=== PATIENT | male | born 1985 | race Hispanic/Latino ===

== ENCOUNTER 2021-03-18 16:50 | Emergency (ER) | payer SELFPAY ==
--- NOTE | ~2021-03-18 | CT_ITS ---
EXAMINATION: CT abdomen pelvis w con DATE: 03/18/2021 18:16 INDICATION: Epigastric abdominal pain. TECHNIQUE: Computed tomography (CT) of the abdomen and pelvis was performed with 100 mL Omnipaque 350 intravenous contrast. Automated exposure control and iterative reconstruction technique were employe d. The dose-length product was 1045.26 mGy-cm. COMPARISON: None. FINDINGS: The visualized portions of the lung bases demonstrate minimal atelectasis. No pleural effus ion. The heart size is normal. No pericardial effusion. There is diffuse hepatic steatosis. The liver , spleen, pancreas, adrenal glands, and kidneys are normal. There are no dilated loops of bowel. The appendix is normal. There is diverticulosis of the colon without evidence of diverticulitis. There ar e no pathologically enlarged lymph nodes. Prominent fat in the left inguinal canal may be a hernia. T here is no free intraperitoneal fluid. There is an umbilical hernia containing fat. The bones are unr emarkable. IMPRESSION: 1. Umbilical hernia containing fat. 2. Diffuse hepatic steatosis. Reviewed, dictated and finalized at location A.
--- NOTE | ~2021-03-18 | XR_ITS ---
EXAMINATION: XR chest 2V DATE: 03/18/2021 17:11 INDICATION: Left chest pain. TECHNIQUE: Frontal and lateral views of the chest were obtained. COMPARISON: None. FINDINGS: The chest demonstrates clear lungs without pneumonia, pleural effusion, or pneumothorax. Th e heart size is normal. IMPRESSION: 1. No acute cardiopulmonary disease. Reviewed, dictated and finalized at location A.
--- NOTE | 2021-03-18 16:52 | ECG_ITS ---
Measurements Intervals [place] Rate: 77 P: 63 MT: 141 QRS: -20 QRSD: 100 T: -1 QT: 348 QTc: 396 Interpretive Statements SINUS RHYTHM INCOMPLETE RIGHT BUNDLE BRANCH BLOCK ST ELEVATION IN ANTEROLAT/HIGH LAT LEADS- PROBABLY EARLY REPOLARIZATION ABNORMALITY BORDERLINE T WAVE ABNORMALITY- INFERIOR LEADS BORDERLINE ECG Electronically Signed On 03-18-2021 20:42:27 CDT by Triston Astorga D.O.
[2021-03-18 16:53] VITALS: BP 144/92; PULSE 84; RESP 16; TEMP 36.7
[2021-03-18 16:58] VITALS: PULSE 75
[2021-03-18 17:06] LABS: Basophils Absolute Auto 0.1 K/mm3 (0.0-0.1); Basophils Percent Auto 0.8 % (0.2-1.2); Eosinophils Absolute Auto 0.2 K/mm3 (0-0.3); Eosinophils Percent Auto 2.1 % (0-4.4); Hematocrit 46.6 % (42.0-52.0); Hemoglobin 15.5 g/dL (14.0-18.0); Immature Granulocyte Absolute 0.06 K/mm3 (0.00-0.031); Immature Granulocyte Percent A 0.7 % (0-0.5); Lymphocytes Absolute Auto 2.79 K/mm3 (0.9-3.2); Lymphocytes Percent Auto 32.7 % (18.3-44.2); Mean Corpuscular HGB Conc 33.3 g/dl (32-36); Mean Corpuscular Hemoglobin 28.7 pg (26-34); Mean Corpuscular Volume 86.1 fl (80-100); Monocytes Absolute Auto 0.5 K/mm3 (0.1-0.6); Monocytes Percent Auto 6.3 % (2.6-8.5); Neutrophils Absolute Auto 4.9 K/mm3 (1.3-6.7); Neutrophils Percent Auto 57.4 % (45.5-73.1); Platelet Count Result 280 k/mm3 (150-375); Red Blood Count 5.41 M/mm3 (4.6-6.20); Red Cell Distribution Width 12.7 % (11.5-14.5); White Blood Count 8.5 K/mm3 (4.5-10.0)
[2021-03-18 17:16] LABS: Anion Gap 7 mmol/L (8-16); Blood Urea Nitrogen 16 mg/dL (9-20); Calcium 8.9 mg/dL (8.4-10.2); Carbon Dioxide 25 mmol/L (22-30); Chloride 102 mmol/L (98-107); Estimated Glomerular Filt Rate > 60; Glucose 99 mg/dL (65-110); Potassium 3.8 mmol/L (3.4-5.0); Sodium 134 mmol/L (137-145)
[2021-03-18 17:22] LABS: INR 0.9
[2021-03-18 17:23] LABS: Partial Thromboplastin Time 29.5 SECONDS (22.3-36.8)
[2021-03-18 17:28] LABS: Troponin I < 0.012 ng/mL (0.000-0.034)
--- NOTE | 2021-03-18 17:57 | ED.CHESTPAIN ---
HPI - Chest Pain General Chief Complaint: Chest Pain Stated Complaint: chest pain Time Seen by Provider: 03/18/21 17:19 Source: patient Mode of arrival: ambulatory Limitations: no limitations History of Present Illness HPI narrative: This is a 36 year old male that presents to the ER for upper abdominal pain present over the last week. Reports the pain is intermittent and sharp. It is worsened sometimes with certain movement. Reports the pain started to radiate into his chest which prompted him to be seen. Denies fever, cough, shortness of breath, nausea, vomiting, dysuria, or lower extremity edema. Related Data Home Medications Medication Instructions Recorded Confirmed No Home Medications 03/18/21 03/18/21 Allergies Allergy/AdvReac Type Severity Reaction Status Date / Time No Known Allergies Allergy Verified 03/18/21 16:58 Review of Systems Review of Systems: CONSTITUTIONAL: Denies fever CARDIOVASCULAR: Reports chest pain. Denies edema. RESPIRATORY: Denies cough or dyspnea. GASTROINTESTINAL: Reports abdominal pain. Denies nausea, vomiting GENITOURINARY: Denies dysuria or hematuria. All systems reviewed & are unremarkable except as noted in HPI and below PMFSH Past Medical History Medical History (Updated 03/18/21 @ 20:59 by Leann Hollis PA-C) No active medical problems Social History Social History (Updated 03/18/21 @ 18:00 by Leann Hollis PA-C) Substance use: never Exam Narrative: GENERAL: Well-appearing, well-nourished, and in no acute distress. HEAD: Normocephalic, atraumatic. EYES: EOMI. CHEST: Clear to auscultation. No respiratory distress. No wheezes rales or rhonchi HEART: Regular rate and rhythm. No murmur heard. Normal peripheral pulses. ABDOMEN: Soft, nondistended, normal active bowel sounds. Tender to palpation in epigastrium, without guarding. No CVA tenderness EXTREMITIES: Normal range of motion. No edema. SKIN: Warm, dry, no rash. NEURO: No focal deficits. Alert and oriented x3. PSYCH: Normal mood and affect Course Vital Signs Vital signs: Vital Signs Temperature 98.1 F 03/18/21 16:53 Pulse Rate 84 03/18/21 16:53 Respiratory Rate 16 03/18/21 16:53 Blood Pressure 144/92 H 03/18/21 16:53 Temperature 98.1 F 03/18/21 18:31 Pulse Rate 66 03/18/21 20:29 Respiratory Rate 18 03/18/21 20:29 Blood Pressure 127/56 L 03/18/21 20:29 Pulse Oximetry 99 03/18/21 20:29 MDM - Chest Pain MDM Narrative Medical decision making narrative: Patient presents to the emergency department for left-sided abdominal/chest pain present over the last week. He is afebrile and nontoxic-appearing. His vitals are stable. CBC and metabolic panel without concerning findings. Lipase is normal. EKG with nonspecific ST changes. Baseline and 3-hour troponin are negative. His heart score is a 2. Patient reports improvement in pain after dose of Toradol. Chest x-ray without acute cardiopulmonary abnormality. CT scan abdomen and pelvis is without acute findings. Patient was updated on case findings. He is stable and felt appropriate for further outpatient evaluation. He is instructed to follow-up with primary care doctor. He was given warnings to return to the ER Lab Data Attestation: I reviewed the patient's lab results. Result diagrams: 03/18/21 17:00 03/18/21 17:00 Labs: Lab Results 03/18/21 03/18/21 03/18/21 Range/Units 17:00 17:00 17:00 WBC 8.5 (4.5-10.0) K/mm3 RBC 5.41 (4.6-6.20) M/mm3 Hgb 15.5 (14.0-18.0) g/dL Hct 46.6 (42.0-52.0) % MCV 86.1 (80-100) fl MCH 28.7 (26-34) pg MCHC 33.3 (32-36) g/dl RDW 12.7 (11.5-14.5) % Plt Count 280 (150-375) k/mm3 MPV 9.0 (7.4-10.4) fl Immature Gran % (Auto) 0.7 H (0-0.5) % Neut % (Auto) 57.4 (45.5-73.1) % Lymph % (Auto) 32.7 (18.3-44.2) % [place] % (Auto) 6.3 (2.6-8.5) % Eos % (Auto) 2.1 (0-4.4) % Baso % (Auto)
[2021-03-18] MEDS: KETOROLAC 30 MG/ML VIAL (*BKC) IV PUSH (18:01)
[2021-03-18 18:08] VITALS: BP 127/73; PULSE 80; RESP 18; O2SAT 99
[2021-03-18 18:19] LABS: Alanine Aminotransferase 44 U/L (4-50); Albumin Level 4.6 g/dL (3.5-5.1); Alkaline Phosphatase 51 U/L (38-126); Aspartate Amino Transferase 39 U/L (17-59); Bilirubin,Total 0.4 mg/dL (0.2-1.3); Lipase 115 U/L (23-300)
[2021-03-18 18:31] VITALS: TEMP 36.7
[2021-03-18 19:02] VITALS: PULSE 72; RESP 12; O2SAT 100
[2021-03-18 20:29] VITALS: BP 127/56; PULSE 66; RESP 18; O2SAT 99
[2021-03-18 20:42] LABS: Troponin I < 0.012 ng/mL (0.000-0.034)
== END 2021-03-18 21:08 | disposition home or self-care (01) ==
PROVIDERS: Physician Assistant; Emergency Provider Emergency Medicine
DX: R10.12 Left upper quadrant pain (principal); K42.9 Umbilical hernia without obstruction or gangrene; K76.0 Fatty (change of) liver, not elsewhere classified; I45.10 Unspecified right bundle-branch block; R94.31 Abnormal electrocardiogram [ECG] [EKG]
CPT/HCPCS: 36415; 71046; 74177; 80048; 80076; 83690; 84484; 85025; 85610; 85730; 93005; 96374; 99284; J1885; Q9967

== ENCOUNTER 2022-01-06 22:33 | Observation (INO) | payer SELFPAY ==
[2022-01-06] VITALS (7 sets, daily range): BP systolic 113–141; BP diastolic 46–77; PULSE 78–87; RESP 13–20; TEMP 36.4; O2SAT 98–99
--- NOTE | ~2022-01-06 | CT_ITS ---
EXAMINATION: CT abdomen pelvis wo con DATE: 01/06/2022 23:28 INDICATION: Lower abdominal pain, periumbilical pain, nausea TECHNIQUE: Computed tomography (CT) of the abdomen and pelvis was performed without intravenous contr ast. Automated exposure control and iterative reconstruction technique were employed. Exam dose: 138 9.76 mGy-cm total exam DLP. COMPARISON: 03/18/2021 CT abdomen pelvis FINDINGS: The lung bases are clear of infiltrate or consolidation. Normal heart size. No pericardial or pleural effusion. Diffuse prominent hepatic steatosis with minimal pericholecystic sparing. No hepatic, splenic, pancre atic, adrenal or renal space-occupying mass lesion is evident. Normal caliber of the abdominal aorta. No intraperitoneal or retroperitoneal or pelvic mass lesion or adenopathy or ascites. The urinary bl adder and prostate gland are unremarkable. There is thickening of the wall the appendix, mild appendiceal dilatation and mild periappendiceal fa t stranding and small right lower quadrant lymph nodes, consistent with acute pancreatitis, without p erforation. No free air is noted. Small fat-containing umbilical hernia. IMPRESSION: Acute appendicitis without perforation Hepatic steatosis Reviewed, dictated and finalized at Location [facility]. Reviewed, dictated and finalized at location B.
--- NOTE | 2022-01-06 22:50 | ED.ABDPAIN ---
HPI - Abdominal Pain General Chief Complaint: Abdominal Pain Stated Complaint: abd pain, bulging from umbilical hernia Time Seen by Provider: 01/06/22 22:44 History of Present Illness HPI narrative: 36-year-old male presents the emergency room for evaluation of umbilical abdomen pain. Patient states 7 years ago he was diagnosed with an umbilical hernia, and has yet to follow-up with a general surgeon to have it repaired. He states yesterday he was out mowing the lawn, when he felt a bump in his abdomen. Patient states he was able to push the bulge back into his abdomen. Patient also states the abdominal bulge disappears when lying flat. Patient describes the pain as a dull throbbing pain. Pain is associated with nausea. Denies any constipation or diarrhea. Patient denies fever. Related Data Home Medications Medication Instructions Recorded Confirmed No Home Medications 03/18/21 03/18/21 Allergies Allergy/AdvReac Type Severity Reaction Status Date / Time No Known Allergies Allergy Verified 03/18/21 16:58 Review of Systems Review of Systems: CONSTITUTIONAL: Denies fever, chills, or sweats. EYES: Denies visual changes, redness, or discharge. ENT: Denies rhinorrhea, congestion, sore throat, or otalgia. CARDIOVASCULAR: Denies chest pain, palpitations, or edema. RESPIRATORY: Denies cough or dyspnea. GASTROINTESTINAL: Reports abdominal pain, nausea GENITOURINARY: Denies dysuria or hematuria. SKIN: Denies rash or itching. MUSCULOSKELETAL: Denies back pain, joint pain, or myalgia. NEUROLOGIC: Denies headache, numbness, dizziness, or weakness. PSYCHIATRIC: Denies anxiety or depression. PMFSH Past Medical History Medical History No active medical problems Social History Social History Substance use: never Exam Narrative: GENERAL: Well-appearing, well-nourished, no physical limitations, and in no acute distress. HEAD: Normocephalic, atraumatic. CHEST: Clear to auscultation. No respiratory distress. No wheezes rales or rhonchi. No tenderness. HEART: Regular rate and rhythm. No murmur heard. Normal peripheral pulses. ABDOMEN: Soft, tenderness around the umbilicus that radiates laterally to the left, no palpable mass while patient is in supine position : Normal external male/female exam. BACK: No CVA tenderness; No cervical/thoracic/lumbar tenderness, step-offs, bony abnormality; FROM SKIN: Warm, dry, no rash. No noted wounds NEURO: No focal deficits. Alert and oriented x3. MAEW. CN's II-XI intact bilaterally, normal gait PSYCH: Cooperative. Normal mood and affect. Course Vital Signs Vital signs: Vital Signs Temperature 36.4 C L 01/06/22 22:40 Pulse Rate 87 01/06/22 22:40 Respiratory Rate 20 01/06/22 22:40 Blood Pressure 141/77 H 01/06/22 22:40 Pulse Oximetry 99 01/06/22 22:40 Oxygen Delivery Room Air 01/06/22 22:40 Temperature 36.4 C L 01/06/22 22:40 Pulse Rate 81 01/06/22 23:30 Respiratory Rate 19 01/06/22 23:30 Blood Pressure 113/46 L 01/06/22 23:27 Pulse Oximetry 99 01/06/22 23:30 Oxygen Delivery Room Air 01/06/22 22:40 MDM - Abdominal Pain Lab Data Result diagrams: 01/06/22 23:02 01/06/22 23:02 Labs: Lab Results 01/06/22 01/06/22 01/06/22 Range/Units 23:01 23:02 23:02 WBC 10.5 H (4.5-10.0) K/mm3 RBC 4.91 (4.6-6.20) M/mm3 Hgb 13.7 L (14.0-18.0) g/dL Hct 41.9 L (42.0-52.0) % MCV 85.3 (80-100) fl MCH 27.9 (26-34) pg MCHC 32.7 (32-36) g/dl RDW 12.9 (11.5-14.5) % Plt Count 259 (150-375) k/mm3 MPV 9.2 (7.4-10.4) fl Immature Gran % (Auto) 0.5 (0-0.5) % Neut % (Auto) 59.5 (45.5-73.1) % Lymph % (Auto) 30.4 (18.3-44.2) % [place] % (Auto) 7.0 (2.6-8.5) % Eos % (Auto) 2.0 (0-4.4) % Baso % (Auto) 0.6 (0.2-1.2) % Lymph # (Auto) 3.20 (0
[2022-01-06] MEDS: SODIUM CHLORIDE 0.9% IV 500 ML 999 ML IV CONT (23:02)
[2022-01-06] MEDS: ONDANSETRON INJ 4 MG/2 ML VIAL IV PUSH (23:03)
[2022-01-06] MEDS: KETOROLAC 30 MG/ML VIAL (*BKC) IV PUSH (23:03)
[2022-01-06 23:07] LABS: Basophils Absolute Auto 0.1 K/mm3 (0.0-0.1); Basophils Percent Auto 0.6 % (0.2-1.2); Eosinophils Absolute Auto 0.2 K/mm3 (0-0.3); Hematocrit 41.9 % (42.0-52.0); Hemoglobin 13.7 g/dL (14.0-18.0); Immature Granulocyte Absolute 0.05 K/mm3 (0.00-0.031); Immature Granulocyte Percent A 0.5 % (0-0.5); Lymphocytes Percent Auto 30.4 % (18.3-44.2); Mean Corpuscular HGB Conc 32.7 g/dl (32-36); Mean Corpuscular Hemoglobin 27.9 pg (26-34); Mean Corpuscular Volume 85.3 fl (80-100); Mean Platelet Volume 9.2 fl (7.4-10.4); Monocytes Absolute Auto 0.7 K/mm3 (0.1-0.6); Neutrophils Absolute Auto 6.3 K/mm3 (1.3-6.7); Neutrophils Percent Auto 59.5 % (45.5-73.1); Platelet Count Result 259 k/mm3 (150-375); Red Blood Count 4.91 M/mm3 (4.6-6.20); Red Cell Distribution Width 12.9 % (11.5-14.5); White Blood Count 10.5 K/mm3 (4.5-10.0)
[2022-01-06 23:18] LABS: Alanine Aminotransferase 41 U/L (6-50); Albumin Level 4.4 g/dL (3.5-5.1); Alkaline Phosphatase 54 U/L (38-126); Anion Gap 6 mmol/L (8-16); Aspartate Amino Transferase 32 U/L (17-59); Bilirubin,Total 0.3 mg/dL (0.2-1.3); Blood Urea Nitrogen 20 mg/dL (9-20); Calcium 8.7 mg/dL (8.4-10.2); Carbon Dioxide 25 mmol/L (22-30); Chloride 105 mmol/L (98-107); Estimated CRCL calculation 84 ml/min; Estimated Glomerular Filt Rate 58; Glucose 109 mg/dL (65-110); Sodium 136 mmol/L (137-145)
[2022-01-07] VITALS (14 sets, daily range): BP systolic 104–132; BP diastolic 52–82; PULSE 63–85; RESP 14–18; TEMP 36.2–37; O2SAT 94–100; BMI 39.4
[2022-01-07] MEDS: fentaNYL CITRATE INJ (*CRX) 100 MCG/2 ML VIAL 50 MCG IV PUSH (00:07)
[2022-01-07 01:37] LABS: SARS-CoV-2 RNA PCR Negative
--- NOTE | 2022-01-07 02:39 | PC.NURSE ---
Addendum entered by Alla Cavanaugh RN 01/07/22 02:56: *faxed Original Note: [facility] faxeds at [phone].
--- NOTE | 2022-01-07 03:46 | ADMGEN ---
This patient, Javan Arvizu, was admitted to [facility] Surg Room 322-02. Patient/family oriented to hospital policies and general routines including ID bracelet, bed and alarms, visiting hours, pain management, procedures, bathroom and other care routines, personal items, smoking policy, room service/diet, and visiting hours. Information on how to activate the Rapid Response Team has been discussed. Patient/Family are encouraged to report perceived risks to care and to ask questions if they do not understand what they are told or what they should do.
[2022-01-07] MEDS: SODIUM CHLORIDE 0.9% IV 1,000 ML 150 ML IV CONT (04:04)
--- NOTE | 2022-01-07 08:18 | WPDANESEPPF ---
Anes - Initial Pre Proc Eval Procedure: Operation Date: 01/07/22 09:00 Proposed Procedures p Laparoscopic Appendectomy - Abebe Thomson DO Date/Time: 01/07/22 08:18 Surgeon: Abebe Thomson DO Pre Op Diagnosis: Appendicitis Patient Data Age: 36 Gender: M Height: 1.68 m Weight: 111 kg Last Vital Signs Temp 37.0 C 01/07/22 04:00 Pulse 64 01/07/22 04:00 Resp 18 01/07/22 04:00 BP 121/82 01/07/22 04:00 Pulse Ox 98 01/07/22 04:00 O2 Del Method Room Air 01/06/22 22:40 Allergies Allergy/AdvReac Type Severity Reaction Status Date / Time No Known Allergies Allergy Verified 01/07/22 08:16 Home Medications Medication Instructions Recorded Confirmed Type No Home Medications 03/18/21 01/07/22 History Laboratory Tests 01/06/22 01/06/22 01/06/22 23:01 23:02 23:02 WBC 10.5 K/mm3 H K/mm3 (4.5-10.0) RBC 4.91 M/mm3 M/mm3 (4.6-6.20) Hgb 13.7 g/dL L g/dL (14.0-18.0) Hct 41.9 % L % (42.0-52.0) MCV 85.3 fl fl (80-100) MCH 27.9 pg pg (26-34) MCHC 32.7 g/dl g/dl (32-36) RDW 12.9 % % (11.5-14.5) Plt Count 259 k/mm3 k/mm3 (150-375) MPV 9.2 fl fl (7.4-10.4) Immature Gran % (Auto) 0.5 % % (0-0.5) Neut % (Auto) 59.5 % % (45.5-73.1) Lymph % (Auto) 30.4 % % (18.3-44.2) [place] % (Auto) 7.0 % % (2.6-8.5) Eos % (Auto) 2.0 % % (0-4.4) Baso % (Auto) 0.6 % % (0.2-1.2) Lymph # (Auto) 3.20 K/mm3 K/mm3 (0.9-3.2) [place] # (Auto) 0.7 K/mm3 H K/mm3 (0.1-0.6) Eos # (Auto) 0.2 K/mm3 K/mm3 (0-0.3) Baso # (Auto) 0.1 K/mm3 K/mm3 (0.0-0.1) Abs Immat Gran (auto) 0.05 K/mm3 H K/mm3 (0.00-0.031) Absolute Neuts (auto) 6.3 K/mm3 K/mm3 (1.3-6.7) Absolute Nucleated RBC 0.0 K/mm3 K/mm3 (0.0-0.012) Nucleated RBC % 0.0 % % (0.0-0.2) Sodium 136 mmol/L L mmol/L (137-145) Potassium 4.0 mmol/L mmol/L (3.4-5.0) Chloride 105 mmol/L mmol/L (98-107) Carbon Dioxide 25 mmol/L mmol/L (22-30) Anion Gap 6 mmol/L L mmol/L (8-16) BUN 20 mg/dL mg/dL (9-20) Creatinine 1.40 mg/dL H mg/dL (0.7-1.3) Estim Creat Clear Calc 84 ml/min ml/min Estimated GFR 58 L (59 - ) Glucose 109 mg/dL mg/dL (65-110) Lactic Acid 1.0 mmol/L mmol/L (0.7-2.0) Calcium 8.7 mg/dL mg/dL (8.4-10.2) Total Bilirubin 0.3 mg/dL mg/dL (0.2-1.3) AST 32 U/L U/L (17-59) ALT 41 U/L U/L (6-50) Alkaline Phosphatase 54 U/L U/L (38-126) Total Protein 7.0 g/dL g/dL (6.3-8.2) Albumin 4.4 g/dL g/dL (3.5-5.1) SARS-CoV-2 RNA (RT-PCR) 01/07/22 00:56 WBC RBC Hgb Hct MCV MCH MCHC RDW Plt Count MPV Immature Gran % (Auto) Neut % (Auto) Lymph % (Auto) [place] % (Auto) Eos % (Auto) Baso % (Auto) Lymph # (Auto) [place] # (Auto) Eos # (Auto) Baso # (Auto) Abs Immat Gran (auto) Absolute Neuts (auto) Absolute Nucleated RBC Nucleated RBC % Sodium Potassium Chloride Carbon Dioxide Anion Gap BUN Creatinine Estim Creat Clear Calc Estimated GFR Glucose Lactic Acid Calcium Total Bilirubin AST ALT Alkaline Phosphatase Total Protein Albumin SARS-CoV-2 RNA (RT-PCR) Negative Patient hx anesthesia problems: none Family hx anesthesia problems: none Results Review: All pre-operative results and documents have been reviewed as part of the pre-operative evaluation. [facility] Past Medical History Medical History (Update
[2022-01-07] MEDS: LACTATED RINGERS 1,000 ML 30 ML IV CONT ×2 (08:23→10:03)
--- NOTE | 2022-01-07 09:05 | PM.IMHP ---
H&P: HPI History of Present Illness Date/Time: 01/07/22 09:05 Chief Complaint: Abdominal pain Narrative: This is a 36 yo M who presented to the ER last night with complaints of periumbilical abdominal pain that started yesterday. He also has an umbilical hernia that he notices a bulge at times and typically can reduce at home. He initially reduced his hernia and his periumbilical abdominal pain persisted. No fever or chills. No previous history of this pain in the past. ER workup showed evidence of acute appendicitis on CT scan of the abdomen/pelvis. Labs showed WBC count of 10,000. Patient now seen in pre-op. Review of Systems Review of Systems: All systems reviewed & are unremarkable except as noted in HPI and below Constitutional: Constitutional: Reports as per HPI, Denies chills and Denies fever(s) Eyes: Eyes: Reports no additional eye complaints ENT: Reports system reviewed and no additional complaints, except as documented Cardiovascular: Cardiovascular: Reports no additional cardiovascular complaints, Denies chest pain and Denies leg edema Respiratory: Respiratory: Reports no additional respiratory complaints, Denies cough and Denies dyspnea Gastrointestinal: Gastrointestinal: Reports as per HPI, Reports no additional gastrointestinal complaints and Reports abdominal pain Genitourinary: Genitourinary: Reports no additional male genitourinary complaints Musculoskeletal: Musculoskeletal: Reports no additional musculoskeletal complaints Neurologic: Reports system reviewed and no additional complaints, except as documented, Denies dizziness, Denies focal weakness, Denies numbness and Denies tingling PMFSH Past Medical History Medical History (Updated 01/07/22 @ 09:09 by NEIL Pedro) No active medical problems Obesity Surgical History Surgical History No pertinent past surgical history Family History Family History Father Hypertension Social History Social History Smoking status: Never smoker Alcohol intake: never Substance use: never Substance use type: does not use Spiritual care concerns: No Meds Home Medications and Allergies Home Medications Medication Instructions Recorded Confirmed Type No Home Medications 03/18/21 01/07/22 History Allergies Allergy/AdvReac Type Severity Reaction Status Date / Time No Known Allergies Allergy Verified 01/07/22 08:16 Vital Signs Vital Signs - 24 hr 01/06/22 22:40 01/06/22 22:49 01/06/22 22:50 Temperature 97.5 F L Pulse Rate 87 82 84 Respiratory Rate 20 13 16 Blood Pressure 141/77 H 132/77 Pulse Oximetry 99 99 99 Oxygen Delivery Room Air 01/06/22 23:12 01/06/22 23:25 01/06/22 23:27 Temperature Pulse Rate 79 81 78 Respiratory Rate 20 19 18 Blood Pressure 113/46 L Pulse Oximetry 98 99 99 Oxygen Delivery 01/06/22 23:30 01/07/22 04:00 01/07/22 08:20 Temperature 98.6 F 98.6 F Pulse Rate 81 64 63 Respiratory Rate 19 18 16 Blood Pressure 121/82 132/78 Pulse Oximetry 99 98 99 Oxygen Delivery Room Air Exam Const: General: comfortable, no acute distress and awake Nutritional Appearance: obese Orientation/consciousness: patient oriented x3 HENMT: Head: normocephalic and atraumatic Ears: hearing grossly normal bilaterally Mouth: Yes moist mucous membranes Eyes: General: appearance normal, both eyes and all related structures Sclera: sclerae normal Pupils: Equal, round and reactive pupils present EOM: EOMs intact bilaterally Neck: Neck: normal visual inspection and full ROM Resp: Effort & Inspection: no respiratory distress Auscultation: clear to auscultation bilaterally Cardio: Rate: regular rate Rhythm: regular rhythm Heart sounds: S1 normal heart sound present and S2 normal heart sound present GI: Inspectio
--- NOTE | 2022-01-07 09:09 | WPDHPUPDATE1 ---
History and Physical Update Update Date/Time: 01/07/22 09:09 History and Physical has been reviewed, including an updated exam of the patient. There are NO changes in the patient's condition. Risks, benefits, and alternatives have been discussed and questions answered. Patient agrees to proceed with procedure.
[2022-01-07] MEDS: ceFAZolin 2 GM/D5W 50 ML 2 GM/50 ML BAG IVPB (09:15)
[2022-01-07] MEDS: metroNIDAZOLE 500 MG/ISO 100ML 500 MG/100 ML BAG 100 MG IVPB (09:15)
[2022-01-07] MEDS: LIDO 1%/EPINEPHRINE/PF 1:200,000 30 ML VIAL XX (09:44)
--- NOTE | 2022-01-07 10:03 | W.PM.PROC2 ---
Procedure Note - Detailed Date of Procedure 01/07/22 Pre-op Diagnosis Appendicitis Post-op Diagnosis Same Procedure Performed Laparoscopic appendectomy Surgeon Abebe Thomson, DO Anesthesia General and Local (0.5% bupivicaine with epinephrine) Indications This is a 36-year-old man who presented to the emergency department overnight with right lower quadrant pain. He began having some pain yesterday and then it worsened throughout the day. He was found to have a slightly elevated white blood count and CT showed evidence of acute appendicitis. Discussions were made with the patient about treatment options and decision was made to proceed with laparoscopic appendectomy, possible open. Findings Laparoscopic appendectomy was performed. The patient's appendix was dilated and indurated, but there was no evidence of perforation or abscess. The base of the appendix appeared healthy and viable. The appendix was removed and sent to the lab for pathology. Patient was found to have a very small fat containing umbilical hernia, but no other intra-abdominal abnormalities were noted. Description of Procedure Procedure as well as risks, benefits, and alternatives were explained to the patient. The patient agreed to proceed. Written consent was obtained and placed in chart prior to procedure. The patient was brought back to surgical suite. He was placed supine on operating table. Time-out was done to confirm the patient and procedure. The patient was then intubated by the Anesthesia Department. His abdomen was prepped and draped in sterile fashion using chlorhexidine prep. A 5 mm incision was made just to the left of the patient's umbilicus and a 5 mm Optiview trocar was advanced through the abdominal layers under direct visualization. Once inside the peritoneal cavity, carbon dioxide insufflation was used to create a pneumoperitoneum. The camera was inserted and the abdomen was inspected. No immediate abnormalities were identified. The patient was then placed in slight Trendelenburg position and rotated to the left. A 5 mm incision was made in the suprapubic region in midline and a 5 mm trocar was inserted under direct visualization. A 12 mm incision was made in the left lower quadrant and a 12 mm trocar was inserted under direct visualization. The right lower quadrant was carefully inspected. The cecum was identified and then this was traced back to the appendix. The appendix was identified and grasped at the mesoappendix and lifted anteriorly. Careful blunt dissection was carried out at the base of the appendix through the mesoappendix using a [place] grasper. An Endo-CECE 45 mm blue load stapler was then advanced across the base of the appendix and clamped and fired. A white reload was then clamped across the mesoappendix and fired. This freed up our appendix completely. It was then placed in an EndoCatch bag and removed through the left lower quadrant port. The staple lines were then inspected. Hemostasis appeared adequate and the staple lines appeared secure. The area was then irrigated with sterile saline. The pelvis was then carefully inspected and irrigated with sterile saline as well and the remainder of the abdomen was carefully inspected. The patient was then flattened out in bed. One final inspection was made around the abdominal cavity and no other abnormalities were seen. The left lower quadrant port was removed and a Juan Manuel-Isidro cone was used to approximate the fascia with an 0 Vicryl simple interrupted suture. The remaining ports were then removed under direct visualization. The camera was removed and the pneumoperitoneum was released. 0.5% bupivacaine with epinephrine was infiltrated locally around each of the incisions. The skin of the incisions was then approximated using 4-0 Monocryl subcuticular suture and Exofin glue was applied on top. The patient was then awakened from anesthesia, extubated, and transferred to Recovery. Est
--- NOTE | 2022-01-07 10:38 | SUR.PHASEI ---
oral airway removed at 1038
[2022-01-07] MEDS: fentaNYL CITRATE INJ (*CRX) 100 MCG/2 ML VIAL 25 MCG IV PUSH (11:44)
[2022-01-07] MEDS: LACTATED RINGERS 1,000 ML 100 ML IV CONT (12:04)
--- NOTE | 2022-01-07 14:53 | PM.DS ---
DS: Admitting Diagnosis Discharge Date 01/07/22 Admitting Diagnosis Acute appendicitis DS: Discharge Diagnosis Discharge Diagnosis (1) Appendicitis: Code(s): K37 - Unspecified appendicitis Status: Acute DS: Summary Hospital Course Reason for hospitalization: Acute appendicitis Hospital Course: This is a 36-year-old man who presented to the emergency department on 01/06/2022 with complaints of right lower quadrant pain for the past couple days. CT in the emergency department showed evidence of acute appendicitis. He was started on broad-spectrum IV antibiotics and was admitted to the hospital for further treatment. He underwent laparoscopic appendectomy on 01/07/2022. Surgery was uncomplicated and he was returned to the surgical floor postoperatively. Diet and activity level were advanced as tolerated. He was remaining hemodynamically stable, pain was well controlled, he was tolerating diet, and he was ambulating with minimal assistance. He was discharged on 01/07/2022. Status at Discharge Functional status at discharge: independent ambulation Overall status at discharge: patient is progressing back to baseline Time Spent with Patient Time attestation: Total time spent providing and/or coordinating discharge services: Time spent: Less than 30 minutes Exam Narrative: Unchanged from preoperative exam DS: Data Data Completed and Pending Completed studies during hospitalization: Pending at discharge 01/07/22 09:41 Surgical [PTH] Routine Imaging Radiologist's impression: ITS Impressions Abdomen/Pelvis CT 01/07/22 08:25 IMPRESSION: Acute appendicitis without perforation Hepatic steatosis Discharge Plan Discharge Attending physician on discharge: Abebe Mann Consulting providers: Chet Rodrigez ; Berna Pete ; Damon Roberson Discharging Clinician: Abebe Mann Anticipated Discharge Date/Time: 01/07/22 13:00 Patient Disposition: Home, Self-Care Activity: other - see discharge instructions Diet: as tolerated and regular Wound Care Instructions: other - see discharge instructions Discharge Instructions: DISCHARGE INSTRUCTION SHEET FOR HERNIA, GALLBLADDER AND APPENDIX SURGERIES DR. MANN PATIENT TO TAKE HOME 1. May shower in 24 hours, no soaking in bath x 2weeks. 2. Call office for: Wound increasingly painful or bleeding Vomiting Fever of greater than 101 degrees 3. If no bowel movement for three days, take 1 oz. (30 ml) Milk of Magnesia or MiraLax 17g 1 to 2 times daily. 4. No heavy lifting > 10-15 pounds x weeks for hernia repairs and 2 weeks for laparoscopic cholecystectomy or appendectomy. 5. No driving for 3 days or while taking narcotic pain medications. 6. Ice to surgical site for 48 hours (30 min on, then 30 min off). 7. Up walking 10-30 minutes three times per day. 8. Resume previous home medications. 9. Follow-up 10-14 days in office for wound check or as previously scheduled. ([phone]) 10. Oral pain medications prescription to be sent to pharmacy. Take Tylenol 500mg every 6 hours and Ibuprofen 600mg every 6 hours for the first 2 days, then as needed. 11. NUTRITION: Start out by drinking fluids and increase your diet as tolerated. If you experience nausea, try dry toast, crackers, and 7-UP. If nausea or vomiting persists, contact your surgeon?s office. 12. Gallbladders-Low Fat Diet for 2 weeks (send care note of low fat diet) 13. Inguinal Hernias-wear scrotal support for 48 hours 14. Abdominal Hernias-if sent home with abdominal binder, wear for the first 2 weeks (may remove to shower or at night to sleep).
== END 2022-01-07 15:40 | disposition home or self-care (01) ==
LOC: ANHED 23:59 → ANH3MEDSUR 01-07 02:39
PROVIDERS: Admitting Provider Surgery; Emergency Provider Nurse Practitioner Family; Visit Provider Surgery
PROC: 0DTJ4ZZ Resection of Appendix, Percutaneous Endoscopic Approach (ICD-10-PCS; CPT 44970; principal; 2022-01-07 09:00)
DX: K35.80 Unspecified acute appendicitis (principal); K42.9 Umbilical hernia without obstruction or gangrene; E66.9 Obesity, unspecified; Z68.39 Body mass index [BMI] 39.0-39.9, adult; Z20.822 Contact with and (suspected) exposure to COVID-19
CPT/HCPCS: 44970; 36415; 74176; 80053; 83605; 85025; 88304; 96361; 96365; 96366; 96367; 96374; 96375; 99285; C9803; G0378; J0330; J0690; J1100; J1885; J2250; J2405; J2543; J2704; J3010; J7030; J7040; J7120; U0003; U0005

== ENCOUNTER 2022-07-15 17:23 | Emergency (ER) | payer SELFPAY ==
--- NOTE | ~2022-07-15 | US_ITS ---
Testicular ultrasound with doppler. Indication: Left testicular pain. Technique: Real-time sonography the scrotum was performed. Color flow Doppler and Doppler spectral an alysis were performed. Findings: The testes are homogeneous in echotexture bilaterally. There is no evidence of an intrates ticular mass. The right testis measures 4.4 x 2.4 x 3.4 cm and the left 4.9 x 2.2 x 3.4 cm. There is color-flow seen to both testes. Arterial and venous spectral waveforms are seen in both testes. There is no sonographic evidence of torsion. Small left epididymal head cyst or spermatocele noted, measur ing 6 mm in diameter. Right epididymis unremarkable. Impression: Subcentimeter left epididymal head cyst or spermatocele. No testicular mass or torsion. Reviewed, dictated and finalized at [facility]. [employer] Impression: Subcentimeter left epididymal head cyst or spermatocele. No testicular mass or torsion.
[2022-07-15 17:43] VITALS: BP 156/88; PULSE 85; RESP 16; TEMP 37.1; O2SAT 100
--- NOTE | 2022-07-15 20:53 | ED.GENADULT ---
HPI - General Adult General Chief complaint: Dental/Oral Stated complaint: facial swelling Time Seen by Provider: 07/15/22 20:14 Source: patient Mode of arrival: ambulatory Limitations: no limitations History of Present Illness HPI narrative: Patient is a 37-year-old male who presents the ED with report of right upper molar dental pain. Patient reports having a cracked right upper molar. He is scheduled to have that tooth extracted tomorrow. He reports he had a dental infection a few weeks ago, which was treated with amoxicillin and improved. Yesterday into today, patient developed recurrent pain, and mild swelling to right upper gumline. Denies any fever. Denies difficulty breathing or swallowing. No sore throat. Patient also reports having intermittent pain in his left testicle for the last 1 month. Patient states anytime he lays down flat and tries to stand back up, he experiences pain in his left testicle which lasts for 5 to 10 minutes before resolving. He has been evaluated for this previously and was advised to follow-up with urology. He has not seen urology yet. He experienced an episode of pain just prior to my evaluation. Denies testicular swelling, issues with urination, penile discharge. Denies concern for STDs. Related Data Allergies Allergy/AdvReac Type Severity Reaction Status Date / Time No Known Allergies Allergy Verified 07/15/22 20:13 Review of Systems Review of Systems: CONSTITUTIONAL: Denies fever, chills, or sweats. ENT: See HPI. CARDIOVASCULAR: Denies chest pain. RESPIRATORY: Denies dyspnea. GASTROINTESTINAL: Denies abdominal pain, nausea, vomiting. GENITOURINARY: See HPI. All systems reviewed & are unremarkable except as noted in HPI and below [facility] Past Medical History Medical History No active medical problems Obesity Surgical History Surgical History History of laparoscopic appendectomy 01/07/2022 No pertinent past surgical history Family History Family History Father Hypertension Social History Social History Smoking status: Never smoker Alcohol intake: never Substance use: never Substance use type: does not use Spiritual care concerns: No Exam Narrative: GENERAL: Well appearing, obese, non-toxic, in no acute distress. HEAD: Normocephalic, atraumatic. EYES: PERRLA/EOMI, conjunctiva clear. ENT: Cracked right upper molar, tooth #3. Erythema along gumline surrounding problem tooth. Mild area of swelling along right upper outer gumline, but no focal fluctuance. Mild swelling extending into right facial cheek. Maintaining secretions. No posterior pharynx erythema. No tonsillar hypertrophy or exudate. NECK: Supple. No significant adenopathy, no masses. RESPIRATORY: Airway patent, respirations nonlabored. Clear to auscultation bilaterally, no rales, rhonchi, wheezing. CARDIOVASCULAR: Regular rate and rhythm without murmurs, rubs, or gallops. Peripheral pulses 2+ and equal bilaterally. ABDOMINAL: Soft, nontender, nondistended, no hepatosplenomegaly. Normoactive BS. SCROTUM: Mild tenderness over superior and inferior epididymis of left testicle. No significant swelling. No abnormal lie. No redness or warmth. No penile discharge. No genital lesions. MUSCULOSKELETAL: Moves all extremities. Strength/ROM intact without gross deformities. SKIN: Warm, dry, normal color. No rashes. NEURO: A&O X3. Speech clear. Cranial nerves II-XII grossly intact. Steady gait. No ataxic movements. PSYCHIATRIC: Appropriate mood and affect. Normal interaction. HENMT: Teeth image: 1. Cracked tooth Course Vital Signs Vital signs: Vital Signs Temperature 98.7 F 07/15/22 17:43 Pulse Rate 85 07/15/22 17:43 Respiratory Rate 16 07/15/22 17:43 Blo
[2022-07-15] MEDS: AMOXICILLIN/CLAVULANATE K 875-125 MG TAB 1 TABLET PO (20:56)
[2022-07-15] MEDS: HYDROcodone/acetaminophen (*CRX) 5-325 MG TABLET 1 TAB PO (20:56)
[2022-07-15 22:10] LABS: Add Urine Microscopic? YES; Appearance Urine Clear (Clear); Bilirubin Urine Negative (Negative); Blood Urine Trace-Intact (Negative); Color Urine Yellow (Yellow); Glucose Urine UA Negative (Negative); Ketones Urine Negative (Negative); Leukocyte Esterase Ur Negative LEU/UL (Negative); Nitrate Urine Negative (Negative); Protein Urine Negative (Negative); Urobilinogen Urine 0.2 mg/dL (<2.0)
[2022-07-15 22:17] LABS: Mucus Urine Rare /lpf; RBC Urine 0-2 /hpf (0-2); WBC Urine 0-3 /hpf
== END 2022-07-16 00:44 | disposition home or self-care (01) ==
PROVIDERS: Emergency Provider Physician Assistant; PCP Physician Assistant
DX: K02.9 Dental caries, unspecified (principal); N50.3 Cyst of epididymis; E66.9 Obesity, unspecified; Z68.34 Body mass index [BMI] 34.0-34.9, adult
CPT/HCPCS: 76870; 81001; 93976; 99284; A9270